=== PATIENT | female | born 1995 ===

== ENCOUNTER → 2017-08-14 | Outpatient (CLI) | payer OTHER ==
--- NOTE | 2017-08-14 09:25 | DIAGNOSTIC IMAGING REPORT ---
LUMBAR SPINE MIN 4 VIEWS HISTORY: 22 years-old Female ACUTE VIRAL SYNDROME, VIRAL INFECTION acute back pain COMPARISON: None available TECHNIQUE: 5 views of the lumbar spine FINDINGS: No acute fracture, subluxation, significant degenerative changes, spondylolysis or spondylolisthesis. 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 The soft tissues are unremarkable. IMPRESSION: 1. No acute bony abnormality. 2. Transitional lumbosacral anatomy as above. The above report was generated using voice recognition software. It may contain grammatical, syntax or spelling errors. Electronically signed by: Steve Zapien M.D. 08/14/2017 9:24 AM Dictated Date/Time: 08/14/2017 9:21 AM
== END | disposition home or self-care (01) ==
LOC: C.RDSM 09:15
PROVIDERS: ATTEND Internal Medicine
DX: B34.9 Viral infection, unspecified (principal); M53.87 Other specified dorsopathies, lumbosacral region